=== PATIENT | female | born 2005 | race Asian ===

== ENCOUNTER 2024-10-15 10:49 | Emergency (ER) | payer MEDICAID, SELFPAY ==
[2024-10-15 10:55] VITALS: BP 129/81; PULSE 127; RESP 20; TEMP 38.1; O2SAT 97; BMI 29.7
--- NOTE | 2024-10-15 10:59 | PD.EDRME ---
Rapid Medical Screening Exam RME Arrival date/time: 10/15/24 10:49 19-year-old female presents the emergency department day for complaint of lower abdominal pain vomiting and fever Chief Complaint: Fever Vital signs: Vital Signs Temperature 100.5 F H 10/15/24 10:55 Pulse Rate 127 H 10/15/24 10:55 Respiratory Rate 20 10/15/24 10:55 Blood Pressure 129/81 10/15/24 10:55 Pulse Oximetry (%) 97 10/15/24 10:55 Oxygen Delivery Method Room Air 10/15/24 10:55
[2024-10-15 11:09] VITALS: TEMP 38.1
[2024-10-15] MEDS: ONDANSETRON ODT 4 MG TABRAP PO (11:09)
[2024-10-15] MEDS: ACETAMINOPHEN 500 MG TABLET 1000 MG PO (11:09)
[2024-10-15 11:43] LABS: Basophils % (Auto) 0 % (0-2.5); Eosinophils % (Auto) 0 % (0-10); Hematocrit 40.1 % (36.0-46.0); Hemoglobin 13.3 g/dL (12.0-16.0); Immature Granulocytes % (Auto) 1 % (0-0); Immature Granulocytes Auto 0.05 Thou/mm3 (0.00-0.00); Lymphocytes # (Auto) 0.8 Thou/mm3 (1.0-4.8); Lymphocytes % (Auto) 7 % (10-50); Mean Corpuscular HGB Conc 33.2 g/dl (31.0-37.0); Mean Corpuscular Hemoglobin 28.6 pg (25.0-35.0); Mean Corpuscular Volume 86 fL (80-100); Monocytes # (Auto) 0.6 Thou/mm3 (0.0-0.8); Monocytes % (Auto) 5 % (0-12); Neutrophils # (Auto) 9.2 Thou/mm3 (1.8-7.7); Neutrophils % (Auto) 87 % (37-80); Nucleated Red Blood Cell % 0 /100 WBC (0); Platelet Count 204 Thou/mm3 (140-440); RDW Standard Deviation 41.1 fL (36.4-46.3); Red Blood Count 4.65 Miln/mm3 (4.00-5.20); White Blood Count 10.6 Thou/mm3 (4.5-11.0)
--- NOTE | 2024-10-15 11:53 | PD.EDNV ---
Nausea/Vomit./Diarrhea-RME/HPI General Chief complaint: Fever Stated complaint: FEVER, N/V/D, BODY ACHES SINCE 2AM; SENT BY PCP Time Seen by Provider: 10/15/24 11:02 Arrival date/time: 10/15/24 10:49 RME / HPI RME / HPI Narrative: 19-year-old female with no past medical history is here today with nausea, vomiting, and diarrhea that she developed at 2 AM today. She denies any blood with her emesis or bowel movements. She has no urinary complaints. She denies any sick contacts. She denies any recent surgery or antibiotic use. She has no other acute complaints or concerns. Related Data Previous Rx's ?Medication ?Instructions ?Recorded albuterol sulfate 90 mcg/actuation 2 puff inhalation QID PRN 03/31/18 aerosol inhaler (Ventolin HFA) shortness of breath or wheezing #8.5 grams dicyclomine 10 mg capsule 10 mg PO BID #10 caps 08/14/21 ondansetron 4 mg disintegrating 4 mg PO Q12H #14 tabs 08/14/21 tablet Allergies Allergy/AdvReac Type Severity Reaction Status Date / Time NKA* Allergy Uncoded 10/15/24 10:53 Review of Systems Review of Systems Systems Reviewed: All systems reviewed, normal except as documented Course Orders Category Date Time Status Bedside COVID-19 Antigen Test NOW Care 10/15/24 14:18 Active Bedside Influenza A&B Antigen Test NOW Care 10/15/24 11:[address] abdomen pelvis w con Stat Exams 10/15/24 10:59 Stop Req US abdomen Stat Exams 10/15/24 14:19 Ordered CBC Stat Lab 10/15/24 11:27 Completed Comprehensive Metabolic Panel Stat Lab 10/15/24 11:27 Completed HCG Qualitative,Urine Stat Lab 10/15/24 12:30 Completed Lipase Stat Lab 10/15/24 11:27 Completed UA, C/S IF [Urinalysis, C/S if Indicated] Stat Lab 10/15/24 12:30 Completed Acetaminophen Tab [Tylenol ES Tab] Med 10/15/24 10:59 Discontinued 1,000 mg PO X1 ONE Ondansetron Odt [Zofran Odt] Med 10/15/24 10:59 Discontinued 4 mg PO X1 ONE Sodium Chloride 0.9% 1000 ml [Ns] 1,000 ml Med 10/15/24 14:18 Active IV 999 mls/hr Vital Signs Vital signs: Vital Signs Temperature 100.5 F H 10/15/24 10:55 Pulse Rate 127 H 10/15/24 10:55 Respiratory Rate 20 10/15/24 10:55 Blood Pressure 129/81 10/15/24 10:55 Pulse Oximetry (%) 97 10/15/24 10:55 Oxygen Delivery Method Room Air 10/15/24 10:55 Nausea/Vomiting/Diarrhea Medications / Prescriptions Medication administrations:: Medication Administration History Sodium Chloride (Ns) 1,000 mls @ 999 mls/hr IV .Q1H1M ONE Stop: 10/15/24 15:18 Discontinued Medications Acetaminophen (Acetaminophen 500 Mg Tablet) 1,000 mg PO X1 ONE Stop: 10/15/24 11:00 Last Admin: 10/15/24 11:09 Dose: 1,000 mg Documented By: WILLIAM Ondansetron HCl (Ondansetron Odt 4 Mg Tabrap) 4 mg PO X1 ONE; Protocol Stop: 10/15/24 11:00 Last Admin: 10/15/24 11:09 Dose: 4 mg Documented By: WILLIAM Discharge Plan Prescriptions/Referrals Prescriptions/Med Rec: No Action albuterol sulfate [Ventolin HFA] 90 mcg/actuation HFA aerosol inhaler 2 puff INH QID PRN (Reason: shortness of breath or wheezing) Qty: 8.5 0RF ondansetron 4 mg tablet,disintegrating 4 mg PO Q12H Qty: 14 0RF dicyclomine 10 mg capsule 10 mg PO BID Qty: 10 0RF Referrals: No Primary/Family,Physician [Primary Care Provider] - In 1 week Patient/Caregiver Discharge Instructions Print Language: Turkish
[2024-10-15 11:54] LABS: Alanine Aminotransferase 17 U/L (10-49); Albumin, Serum 4.2 gm/dL (3.5-5.0); Albumin/Globulin Ratio 1.8 (1.2-2.2); Alkaline Phosphatase 56 U/L (46-116); Anion Gap 10 (7-16); Aspartate Amino Transferase 20 U/L (0-34); BUN/Creatinine Ratio 10 Ratio (12-20); Bilirubin,Total 0.6 mg/dL (0.3-1.2); Blood Urea Nitrogen 9 mg/dL (9-23); Calcium 8.5 mg/dL (8.3-10.6); Calcium (Corrected) 8.5 mg/dL (8.5-10.1); Carbon Dioxide 25.6 mMol/L (20.0-31.0); Chloride 106 mMol/L (98-107); Creatinine (Component) 0.9 mg/dL (0.6-1.3); Estimated Creatinine Clearance 97.5 mL/min (>60); Globulin 2.4 gm/dL (2.3-3.5); Glucose 112 mg/dL (74-106); Lipase 32 U/L (12-53); Osmolality,Calculated 282 (275-295); Sodium 142 mMol/L (136-145); Total Protein 6.6 gm/dL (5.7-8.2); eGFR > 60 See Note
[2024-10-15 12:54] LABS: Collection Type, Urine Clean Catch
[2024-10-15 13:07] LABS: HCG Qualitative,Urine Negative
[2024-10-15 13:13] LABS: Bilirubin,Urine Negative (Negative); Blood,Urine Negative (Negative); Clarity,Urine Clear (Clear/Hazy); Color,Urine Yellow (Lt Yel-Yel); Culture Indicated,Urine Not Indicated; Glucose, Urine Negative (Negative); Ketones,Urine 1+ (Negative); Leukocyte Esterase,Urine Positive (Negative); Nitrite,Urine Negative (Negative); Protein,Urine 1+ (Neg - Trace); RBC,Urine 1 /hpf (0-3); Specific Gravity,Urine 1.037 (1.001-1.035); Squamous Epithelial Cell,Urine 5 /hpf (0-5); Transitional Epi Cells,Urine 1 /hpf (0-5); Urobilinogen,Urine Negative mg/dL (0.0-1.0); WBC,Urine 1 /hpf (0-5)
--- NOTE | 2024-10-15 13:31 | PC.NURSE ---
INFORMED CT PT'S PREG TEST WAS NEGATIVE. THEY WILL COME GET HER SHORTLY.
--- NOTE | 2024-10-15 14:19 | XR_ITS ---
Examination: Abdomen sonogram, complete Date and time of exam: October 15, 2024 1428 hours INDICATIONS: Abdominal pain nausea and diarrhea fever today. Technique: Multiple real-time grayscale transabdominal sonographic images of the abdomen have been obtained. Findings: Negative for gallstones Gallbladder wall 0.48 cm Common bile duct 0.3 cm Pancreatic head 2.0 cm Aorta not enlarged Liver 12.7 cm no liver lesions Right kidney 10.7 cm cortex 1.8 cm Left kidney 11.8 cm cortex 2.4 cm Spleen 10.2 cm Normal hepatopedal venous flow Patent IVC IMPRESSION: Cholelithiasis Abnormal thickening of the gallbladder wall, consider HIDA scan or MRCP follow-up
--- NOTE | 2024-10-15 15:11 | PC.NURSE ---
PT REPORTS SHE WOKE UP WITH N/V BUT FEELS BETTER NOW AFTER MEDICATIONS RECEIVED HERE IN ED. PT SLIGHTLY TACHY ON TELE, FLUIDS INFUSING AT THIS TIME. MOM AT BEDSIDE ATTENTIVE TO PT, CALL KIM IN REACH, WILL CONT W/POC
[2024-10-15] MEDS: SODIUM CHLORIDE 0.9% 1000 ML 1,000 ML 999 ML IV (15:13)
[2024-10-15 16:19] VITALS: BP 104/61; PULSE 97; RESP 19; TEMP 36.9; O2SAT 98
--- NOTE | 2024-10-15 16:59 | PD.EDNV ---
Nausea/Vomit./Diarrhea-RME/HPI General Chief complaint: Fever Stated complaint: FEVER, N/V/D, BODY ACHES SINCE 2AM; SENT BY PCP Time Seen by Provider: 10/15/24 11:02 Arrival date/time: 10/15/24 10:49 Limitations: no limitations RME / HPI RME / HPI Narrative: 19-year-old female with no past medical history is here today with nausea, vomiting, and diarrhea that she developed at 2 AM today. She denies any blood with her emesis or bowel movements. She has no urinary complaints. She denies any sick contacts. She denies any recent surgery or antibiotic use. She has no other acute complaints or concerns. DR. CHAVIRA MAIN ED EVALUATION: 19 year old female presents to the ED with acute onset of nausea, vomiting, and diarrhea beginning this morning. She reports having 3-4 episodes of loose stools and vomited after attempting to eat earlier today. She denies abdominal pain but describes a persistent queasy sensation. She also denies cough, shortness of breath, or headache. 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 Related Data Previous Rx's ?Medication ?Instructions ?Recorded albuterol sulfate 90 mcg/actuation 2 puff inhalation QID PRN 03/31/18 aerosol inhaler (Ventolin HFA) shortness of breath or wheezing #8.5 grams dicyclomine 10 mg capsule 10 mg PO BID #10 caps 08/14/21 ondansetron 4 mg disintegrating 4 mg PO Q12H #14 tabs 08/14/21 tablet diphenoxylate-atropine 2.5 1 tab PO TID PRN diarrhea #10 tabs 10/15/24 mg-0.025 mg tablet (Lomotil) ondansetron HCl 4 mg tablet 4 mg PO Q8H PRN nausea and 10/15/24 vomiting 3 days #14 tabs Allergies Allergy/AdvReac Type Severity Reaction Status Date / Time NKA* Allergy Uncoded 10/15/24 10:53 Review of Systems Review of Systems Systems Reviewed: All systems reviewed, normal except as documented Past Medical History Past Medical History CARDIAC: Negative Congestive Heart Failure RESPIRATORY: Negative Chronic Obstructive Pulmonary Disease (COPD) GENITOURINARY: Negative Renal Disease ENDOCRINE: Negative Diabetes Mellitus Type 1 or Diabetes Mellitus Type 2 Social History SMOKING STATUS: Never smoker SUBSTANCE USE: does not use ED Exam General Limitations: Present no limitations General appearance: Present alert and in no apparent distress Head Head exam: Present atraumatic, normocephalic and normal inspection Eye Eye exam: Present normal appearance, PERRL and EOMI ENT ENT exam: Present normal exam, normal oropharynx and mucous membranes moist Neck Neck exam: Present normal inspection, full ROM and trachea midline Chest Chest inspection: Present normal inspection and symmetric chest wall rise Respiratory Respiratory exam: Present normal lung sounds bilaterally Cardiovascular Cardiovascular exam: Present regular rate, normal rhythm and normal heart sounds Abdominal Exam Abdominal exam: Present soft and normal bowel sounds Extremities Exam Extremities exam: Present normal inspection and full ROM Back Exam Back exam: Present normal inspection and full ROM Neurological Exam Neurological exam: Present alert, oriented X3 and CN II-XII intact Psychiatric Psychiatric exam: Present normal affect and normal mood Skin Skin exam: Present warm, dry, intact and normal color Course Quality Measures none Orders Category Date Time Status Bedside COVID-19 Antigen Test NOW Care 10/15/24 14:18 Completed Bedside Influenza A&B Antigen Test NOW Care 10/15/24 11:00 Completed US abdomen Stat Exams 10/15/24 14:19 Completed CBC Stat Lab 10/15/24 11:27 Completed Comprehensive Metabolic Panel Stat Lab 10/15/24 11:27 Completed HCG Qualitative,Urine Stat Lab 10/15/24 12:30 Completed Lipase Stat Lab 10/15/24 11:27 Completed UA, C/S IF [Urinalysis, C/S if Indicated] Stat Lab 10/15/24 12:30 Completed Acetaminophen Tab [Tylenol ES Tab] Med 10/15/24 10:59 Discontinued 1,000 mg PO X1 ONE Ondansetron Odt [Zofran Odt] Med 10/15/24 10:59 Discontinued 4 mg PO X1 ONE Sodium Chloride 0.9% 1000 ml [Ns] 1,000 ml Med 10/15/24 14:18 Discontinued IV 999 mls/hr Vital Signs Vital signs: Vital Signs Temperature 100.5 F H 10/15/24 10:55 Pulse Rate 127 H 10/15/24 10:55 Respiratory Rate 20 10/15/24 10:55 Blood Pressure 129/81 10/15/24 10:55 Pulse Oximetry (%) 97 10/15/24 10:55 Oxygen Delivery Method Room Air 10/15/24 10:55 Pulse ox is 97% on room air which is adequate. Nausea/Vomiting/Diarrhea MDM Narrative MDM Narrative:: Yoselin Jovel am scribing for and in the presence of Dr. Chavira. Patient remains clinically stable throughout the emergency department visit. We reviewed all the results, analysis, and treatment plans. Patient is amenable to discharge. Strict return precautions were outlined. Patient was discharged in stable condition. Patient data External records reviewed:: [facility] previous records (I reviewed ED visit on 08/14/2021 ) Clinical information provided by:: patient Social determinants that could affect healthcare access:: none Patient has the following chronic illnesses:: No chronic hx reported How is presenting disease/condition affected by chronic disease/condition?: no chronic disease Evaluation data The following diagnostics were reviewed and interpreted by me:: lab results and radiology exam(s) Lab and/or radiology exams considered but not ordered:: None Interpretation Summary: Ordering Physician: Ramy Chavira MD Date of Service: 10/15/24 Procedure(s): US abdomen Accession Number(s): [id number] cc: Ramy Chavira MD; Sha Gonzalez MD; NO PRIMARY/FAMILY,PHYSICIAN~ ADDENDUM ADDENDUM #1 Addendum: Impression should read negative for gallstones ORIGINAL REPORT Examination: Abdomen sonogram, complete Date and time of exam: October 15, 2024 1428 hours INDICATIONS: Abdominal pain nausea and diarrhea fever today. Technique: Multiple real-time grayscale transabdominal sonographic images of the abdomen have been obtained. Findings: Negative for gallstones Gallbladder wall 0.48 cm Common bile duct 0.3 cm Pancreatic head 2.0 cm Aorta not enlarged Liver 12.7 cm no liver lesions Right kidney 10.7 cm cortex 1.8 cm Left kidney 11.8 cm cortex 2.4 cm Spleen 10.2 cm Normal hepatopedal venous flow Patent IVC IMPRESSION: Cholelithiasis Abnormal thickening of the gallbladder wall, consider HIDA scan or MRCP follow-up Addendum Dictated By: Sha Gonzalez MD Addendum Signed By: <Electronically signed by Sha Gonzalez MD in [place]> 10/15/24 1527 Addendum Cosigned By: DD/ TD/TT: 10/15/24 Examination: Abdomen sonogram, complete Date and time of exam: October 15, 2024 1428 hours INDICATIONS: Abdominal pain nausea and diarrhea fever today. Technique: Multiple real-time grayscale transabdominal sonographic images of the abdomen have been obtained. Findings: Negative for gallstones Gallbladder wall 0.48 cm Common bile duct 0.3 cm Pancreatic head 2.0 cm Aorta not enlarged Liver 12.7 cm no liver lesions Right kidney 10.7 cm cortex 1.8 cm Left kidney 11.8 cm cortex 2.4 cm Spleen 10.2 cm Normal hepatopedal venous flow Patent IVC IMPRESSION: Cholelithiasis Abnormal thickening of the gallbladder wall, consider HIDA scan or MRCP follow-up Dictated By: Sha Gonzalez MD Signed By: <Electronically signed by Sha Gonzalez MD in [place]> 10/15/24 7275 Medications / Prescriptions Medications / Prescriptions considered but not ordered:: None Medication administrations:: Medication Administration History Discontinued Medications Acetaminophen (Acetaminophen 500 Mg Tablet) 1,000 mg PO X1 ONE Stop: 10/15/24 11:00 Last Admin: 10/15/24 11:09 Dose: 1,000 mg Documented By: WILLIAM Sodium Chloride (Ns) 1,000 mls @ 999 mls/hr IV .Q1H1M ONE Stop: 10/15/24 15:18 Last Infusion: 10/15/24 16:14 Dose: Infused Documented By: Admin: 10/15/24 15:13 Dose: 999 mls/hr Documented By: CRUZ Ondansetron HCl (Ondansetron Odt 4 Mg Tabrap) 4 mg PO X1 ONE; Protocol Stop: 10/15/24 11:00 Last Admin: 10/15/24 11:09 Dose: 4 mg Documented By: WILLIAM See above Consultations Consultation(s) initiated? (list below): No Diagnosis Nausea Differential Diagnosis: food poisoning, gastroenteritis, drug-induced nausea and vomiting and dehydration Most likely diagnosis given after review of the tests above:: Acute gastroenteritis Admission Indicated Admission indicated?: not indicated Admission Request Was there a request for admission?: No Disposition Plan Disposition Plan: Discharge Discharge Attestation Discharge Attestation: The patient and all family members were given an opportunity to ask questions and understood the discharge instructions. Discharge instructions specifically effects, indications for sooner follow up or return to the emergency department, and the expected course of current diagnosis. Patient condition: Stable Discharge Plan Plan Patient Disposition: HOME (Self Care) Prescriptions/Referrals Prescriptions/Med Rec: New diphenoxylate-atropine [Lomotil] 2.5-0.025 mg tablet 1 tab PO TID MDD 3 PRN (Reason: diarrhea) Qty: 10 0RF ondansetron HCl 4 mg tablet 4 mg PO Q8H MDD 3 PRN (Reason: nausea and vomiting) 3 Days Qty: 14 0RF No Action albuterol sulfate [Ventolin HFA] 90 mcg/actuation HFA aerosol inhaler 2 puff INH QID PRN (Reason: shortness of breath or wheezing) Qty: 8.5 0RF ondansetron 4 mg tablet,disintegrating 4 mg PO Q12H Qty: 14 0RF dicyclomine 10 mg capsule 10 mg PO BID Qty: 10 0RF Referrals: No Primary/Family,Physician [Primary Care Provider] - In 1 week Problem List Clinical Impression: Acute gastroenteritis Patient/Caregiver Discharge Instructions Education Materials: ED Gastroenteritis, Noninfectious Additional Instructions: Follow-up with your primary care doctor in 3 to 5 days for recheck. You can return to the emergency department sooner if symptoms worsen or if you notice any new, concerning issues. Print Language: Emirati Stand Alone Forms: Award Info., Patient Portal Info Letter
== END 2024-10-15 16:44 | disposition home or self-care (01) ==
PROVIDERS: Nurse Practitioner Primary Care; Emergency Provider Family Medicine
DX: K52.9 Noninfective gastroenteritis and colitis, unspecified (principal); K80.20 Calculus of gallbladder without cholecystitis without obstruction
CPT/HCPCS: 36415; 76700; 80053; 81001; 81025; 83690; 85025; 87400; 87811; 96360; 99284; J7030; Q0162; A9270